=== PATIENT | male | born 1970 | race Caucasian/White ===

== ENCOUNTER 2018-10-16 09:21 | Emergency (ER) | payer SELFPAY ==
--- NOTE | 2018-10-16 11:42 | ED Physician Documentation ---
History of Present Illness - Stated complaint Stated Complaint: LEFT LEG PX - Chief complaint Chief Complaint: Ext Problem - Additonal information Additional information: hx from pt 48 male to ED with posterior RLE pain for motnhs worse with walking no swelling pains are sharp and electric no numbness or weakness no abd pain rad to right lower back no CP or SOA no fever Review of Systems Constitutional: denies: Fever, Chills Cardiac: denies: Chest pain / pressure Respiratory: denies: Dyspnea GI: denies: Abdominal Pain : denies: Dysuria, Incontinent Musculoskeletal: reports: Back pain, Extremity pain Neurologic: denies: Focal weakness, Numbness Endocrine: denies: Easy bruising / bleeding Immunocompromised: denies: Immunocompromised PD PAST MEDICAL HISTORY - Present Medications Home Medications: Ambulatory Orders Medication Instructions Recorded Confirmed Cyclobenzaprine HCl 5 mg PO DAILY PM 10/16/18 10/16/18 Gabapentin 100 mg PO BID #28 capsule 10/16/18 Ibuprofen [Ibu] 800 mg PO TID 10/16/18 10/16/18 predniSONE [Deltasone] 20 mg PO [id number] #21 tablet 10/16/18 - Allergies Allergies/Adverse Reactions: Allergies Allergy/AdvReac Type Severity Reaction Status Date / Time No Known Drug Allergies Allergy Verified 10/16/18 09:41 PD ED PE NORMAL - Vitals Vital signs reviewed: Yes - Neck Neck: Supple, no meningeal sign - Cardiac Cardiac: RRR - Respiratory Respiratory: No respiratory distress - Abdomen Abdomen: Soft, Non tender, Other (no pulsatile mass) - Back Back: No spinal TTP, Other (no TTP anywhere but pt indicates pain radiates to L SI region) - Extremities Extremities: No deformity, No edema. No: No calf tenderness / cord (mild TTP, no cord, no erythema, strong pulses, ) - Neuro Neuro: Other (+ SLR, no clonus, hip flexion knee ext foot dorsi plantar and great toe ext all 5/5 nl sensation, ) Results - Vitals Vitals: Vital Signs - 24 hr 10/16/18 09:39 Temperature 36.8 C Heart Rate 87 Respiratory 14 Rate Blood Pressure 145/66 H O2 Saturation 99 Oxygen O2 Source Room air PD MEDICAL DECISION MAKING - ED course ED course: LLE pain for motnhs starts in calf but raditaes to buttock and low back SI region and no swelling so doubt DVT worse with ambulation but strong pulses so doubt claudications nl neuro exam and no fever so doubt epidural absess / cauda equina will tx for presumed sciatica Departure - Departure Disposition: 01 Home, Self Care Clinical Impression: Sciatica Qualifiers: Laterality: left Qualified Code(s): M54.32 - Sciatica, left side Condition: Good Instructions: ED Sciatica Follow-Up: Huong Recinos MD [Primary Care Provider] - Prescriptions: Gabapentin 100 mg PO BID #28 capsule predniSONE [Deltasone] 20 mg PO [id number] #21 tablet Comments: This pain seem likely to be from sciaitica. Other less likely possibilities would include poor blood flow or a blood clot but based on your exam I feel this is less likely Try the steroid tapes to decrease nerve inflammation and gabapentin for nerve pain. Follow up with [facility] in about 7-10 days for a recheck to see how you are doing on the new medications. If not improving consider artery and vein ultrasounds of the legs and maybe a MRI of the back Return sooner if worse Forms: Activity restrictions
[2018-10-16] MEDS ORDERED: guaiFENesin/DEXTROMETHORPHAN 10 ML UDC PO SCH (12:00)
[2018-10-16 12:09] VITALS: BP 138/70
== END 2018-10-16 12:08 | disposition home or self-care (01) ==
LOC: ED 09:21
DX: M54.32 Sciatica, left side (principal)
CPT/HCPCS: 99283